=== PATIENT | male | born 1965 | race Caucasian/White ===

== ENCOUNTER 2018-01-15 03:17 | Emergency (ER) | payer OTHER ==
[~2018-01-15] VITALS: Ht 175.3 cm; Wt 66.4 kg
[~2018-01-15 03:17] MED LIST: COLACE100 MG PO; DURICEF1 GM PO; NOHOMEMEDS; OXYCONTIN20 MG PO; OxyCODONE PO
[2018-01-15 03:22] VITALS: BP 152/88
[2018-01-15] MEDS ORDERED: LO-DOSE ASPIRIN81 M2 PO (14:52)
== END 2018-01-15 04:00 | disposition left against medical advice (07) ==
LOC: EME → EDBD 03:17 → EME 03:17
DX: R07.9 Chest pain, unspecified (principal); Z53.21 Procedure and treatment not carried out due to patient leaving prior to being seen by health care provider
CPT/HCPCS: 80053; 84484; 85027; 85610; 85730; 93005

== ENCOUNTER 2018-01-15 11:09 | Inpatient (IN) | payer OTHER ==
[~2018-01-15] VITALS: Ht 175.3 cm; Wt 67.3 kg
[2018-01-15 12:38] LABS: HEMATOCRIT 43.9 % (38.0-50.0); HEMOGLOBIN 15.9 G/DL (12.5-16.6); MCH 33.8 PG (29.0-34.0); MCHC 36.2 G/DL (30.0-36.0); MCV 93.2 FL (86-99); PLATELET COUNT 254 K/uL (156-360); RBC DIS.WIDTH-CV 13.2 % (11.8-14.6); RBC DIS.WIDTH-SD 45.7 % (39-53); RED BLOOD COUNT 4.71 M/uL (4.00-5.50); WHITE BLOOD COUNT 7.9 K/uL (4.1-10.2)
[2018-01-15 12:53] LABS: CHLORIDE 106 mEq/L (99-109)
[2018-01-15 12:54] LABS: SODIUM 139 mEq/L (136-147)
[2018-01-15 12:55] LABS: GLUCOSE 97 mg/dL (70-99)
[2018-01-15 12:59] LABS: CREATININE 0.8 mg/dL (0.6-1.3); GFR ESTIMATE (CALCULATED) > 59 mL/min/ (58.99-99999)
[2018-01-15 13:00] LABS: UREA NITROGEN (BUN) 8 mg/dL (9-23)
[2018-01-15 13:03] LABS: TROP-I INTERPRETATION POSITIVE
[2018-01-15 13:09] LABS: TROPONIN-I 2.77 ng/mL (0.0-0.30)
[2018-01-15 13:43] LABS: SERUM ETHYL ALCOHOL 190 mg/dL
[2018-01-15] MEDS ORDERED: LO-DOSE ASPIRIN81 M2 PO (14:52)
[2018-01-15 15:07] LABS: PTT 29.7 SEC (25-37)
[2018-01-15 15:30] LABS: HEMATOCRIT 42.2 % (38.0-50.0); MCH 33.4 PG (29.0-34.0); MCHC 35.5 G/DL (30.0-36.0); PLATELET COUNT 235 K/uL (156-360); RBC DIS.WIDTH-CV 13.4 % (11.8-14.6); RBC DIS.WIDTH-SD 46.6 % (39-53); RED BLOOD COUNT 4.49 M/uL (4.00-5.50); WHITE BLOOD COUNT 6.8 K/uL (4.1-10.2)
[2018-01-15 15:38] LABS: ALBUMIN 4.4 g/dL (3.2-4.8); CHLORIDE 107 mEq/L (99-109); POTASSIUM 3.8 mEq/L (3.7-5.4); SODIUM 139 mEq/L (136-147)
[2018-01-15 15:39] LABS: MAGNESIUM 2.4 mg/dL (1.3-2.7)
[2018-01-15 15:41] LABS: GLUCOSE 93 mg/dL (70-99); TOTAL PROTEIN 7.6 g/dL (6.4-8.3)
[2018-01-15 15:42] LABS: TOTAL BILIRUBIN 0.3 mg/dL (0.0-1.0)
[2018-01-15 15:44] LABS: ALKALINE PHOSPHATASE 74 IU/L (3-129); CREATININE 0.8 mg/dL (0.6-1.3); GFR ESTIMATE (CALCULATED) > 59 mL/min/ (58.99-99999); SERUM ETHYL ALCOHOL 106 mg/dL
[2018-01-15 15:45] LABS: UREA NITROGEN (BUN) 8 mg/dL (9-23)
[2018-01-15 15:46] LABS: AST (GOT) 49 IU/L (2-34)
[2018-01-15 15:47] LABS: ALT (GPT) 28 IU/L (3-49)
[2018-01-15 16:30] LABS: HDL CHOLESTEROL 55 MG/DL (Desirable>=40); LDL CHOLESTEROL 106 mg/dL (Desirable<100); NON-HDL CHOLESTEROL 117 mg/dL (Desirable<160); TOTAL CHOLESTEROL 172 mg/dL (Desirable<200); TRIGLYCERIDES 53 MG/DL (Normal: <150)
[2018-01-15 18:37] LABS: TROP-I INTERPRETATION POSITIVE; TROPONIN-I 2.91 ng/mL (0.0-0.30)
[2018-01-15 21:30] LABS: BASOPHIL (%) 0.2 % (0-1); EOSINOPHIL (%) 0.5 % (0-5); HEMATOCRIT 41.3 % (38.0-50.0); HEMOGLOBIN 14.7 G/DL (12.5-16.6); IMMATURE GRANULOCYTE (%) 0.3 % (0.0-0.7); LYMPHOCYTE (%) 42.1 % (15-42); LYMPHOCYTE COUNT 2.7 K/uL (1.0-2.8); MCH 33.7 PG (29.0-34.0); MCHC 35.6 G/DL (30.0-36.0); MCV 94.7 FL (86-99); MONOCYTE (%) 6.8 % (3-12); MONOCYTE COUNT 0.4 K/uL (0-0.8); NEUTROPHIL (%) 50.1 % (45-76); NEUTROPHIL COUNT 3.2 K/uL (1.8-6.4); PLATELET COUNT 226 K/uL (156-360); RBC DIS.WIDTH-CV 13.8 % (11.8-14.6); RBC DIS.WIDTH-SD 48.1 % (39-53); RED BLOOD COUNT 4.36 M/uL (4.00-5.50); WHITE BLOOD COUNT 6.3 K/uL (4.1-10.2)
[2018-01-16] VITALS: BP 136/74
[2018-01-16 01:02] LABS: TROP-I INTERPRETATION POSITIVE
[2018-01-16 01:03] LABS: TROPONIN-I 2.09 ng/mL (0.0-0.30)
[2018-01-16 04:35] VITALS: BP 155/72
[2018-01-16 08:20] VITALS: BP 174/86
[2018-01-16 08:44] LABS: CHLORIDE 111 MEQ/L (99-109); CREATININE 0.8 MG/DL (0.6-1.3); GFR ESTIMATE (CALCULATED) > 59 mL/min/ (58.99-99999); GLUCOSE 98 mg/dL (70-99); POTASSIUM 3.9 MEQ/L (3.7-5.4); SODIUM 140 MEQ/L (136-147); UREA NITROGEN (BUN) 9 mg/dL (9-23)
[2018-01-16 10:03] LABS: HEMOGLOBIN A1c (GLYCOHEMOGLOB) 4.9 % (Below 5.7)
[2018-01-16 12:06] VITALS: BP 159/84
[2018-01-16 18:54] VITALS: BP 123/62
[2018-01-17 00:50] VITALS: BP 126/72
[2018-01-17 07:30] VITALS: BP 145/77
[2018-01-17] MEDS ORDERED: ASPIRIN EC325 MG PO (11:52)
[2018-01-17] MEDS ORDERED: ATORVASTATIN CA40 MG PO (11:52)
[2018-01-17] MEDS ORDERED: LISINOPRIL10 MG PO (11:52)
[2018-01-17] MEDS ORDERED: PLAVIX75 MG PO (11:53)
[2018-01-17] MEDS ORDERED: FOLIC ACID1 MG PO (11:56)
[2018-01-17] MEDS ORDERED: LIBRIUM25 MG PO (11:56)
[2018-01-17] MEDS ORDERED: B-1100 MG PO (11:56)
[2018-01-17] MEDS ORDERED: NICOTINE PATCH1 EAC1 TD (12:03)
== END 2018-01-17 14:31 | disposition home or self-care (01) | DRG 247 ==
LOC: EME 11:09 → EDOF 14:55 → 4EAST 14:55 → ENRESERV 15:05 → EDOF 15:08 → 2SOUTH 20:24 → ENRESERV 22:17 → 4EAST 23:25 → ENPENDDIS 01-17 → 4EAST 01-17 14:31
PROVIDERS: Internal Medicine; Internal Medicine Cardiovascular Disease; Student in an Organized Health Care Education/Training Program
DX: I21.4 Non-ST elevation (NSTEMI) myocardial infarction (principal); I25.10 Atherosclerotic heart disease of native coronary artery without angina pectoris; F12.90 Cannabis use, unspecified, uncomplicated; I10 Essential (primary) hypertension; Z91.19 Patient's noncompliance with other medical treatment and regimen; Z91.14 Patient's other noncompliance with medication regimen; I77.1 Stricture of artery; Z98.61 Coronary angioplasty status; E78.5 Hyperlipidemia, unspecified; F17.200 Nicotine dependence, unspecified, uncomplicated; F10.10 Alcohol abuse, uncomplicated; Z79.82 Long term (current) use of aspirin; R00.1 Bradycardia, unspecified; Z82.49 Family history of ischemic heart disease and other diseases of the circulatory system
CPT/HCPCS: 71046; 80048; 80053; 80061; 80306 90; 83036; 83735; 84484; 85025; 85027; 85347; 85610; 85730; 93005; 99281; 99285; C1725; C1769; C1874; C1887; G0480; J1170; J1200; J1644; J2060; J2250; J3246; J3411; J7030; J7050